=== PATIENT | female | born 1985 ===

== ENCOUNTER 2017-05-15 15:26 | Emergency (ER) | payer OTHER ==
[2017-05-15 16:39] VITALS: BP 142/82; PULSE 86; RESP 16; TEMP 98.3; O2SAT 100
--- NOTE | 2017-05-15 17:26 | ED PDOC ---
HPI: Back Time Seen by Provider: 05/15/17 17:00 Chief Complaint (Nursing): Back Pain Chief Complaint (Provider): Back Pain, Abdominal Pain History Per: Patient History/Exam Limitations: no limitations Onset/Duration Of Symptoms: Days (x 1) Current Symptoms Are (Timing): Still Present Additional Complaint(s): 31 year old female presents to the ER complaining of back pain and lower abdominal pain for 1 day. She denies any incontinence, dysuria, or vaginal bleeding. Additionally, patient states she is approximately 2 weeks . She had a positive urine test in the clinic, and had blood work done but no ultrasound yet. PMD: None provided Past Medical History Reviewed: Historical Data, Nursing Documentation, Vital Signs Vital Signs: Last Vital Signs Temp 98.3 F 05/15/17 16:36 Pulse 86 05/15/17 16:36 Resp 16 05/15/17 16:36 BP 142/82 05/15/17 16:36 Pulse Ox 100 05/15/17 16:36 - Family History Family History: States: Unknown Family Hx - Home Medications Home Medications: Ambulatory Orders Medication Instructions Recorded Ondansetron ODT [Zofran ODT] 4 mg PO Q8 PRN #8 odt 05/15/17 Multivit/Folic Acid/I 1 tab PO DAILY #30 tab 05/15/17 [ Plus] - Allergies Allergies/Adverse Reactions: Allergies Allergy/AdvReac Type Severity Reaction Status Date / Time No Known Allergies Allergy Verified 05/15/17 16:36 Review of Systems ROS Statement: Except As Marked, All Systems Reviewed And Found Negative Gastrointestinal: Positive for: Abdominal Pain. Negative for: Nausea, Vomiting Genitourinary Female: Negative for: Dysuria, Incontinence, Vaginal Bleeding Musculoskeletal: Positive for: Back Pain Physical Exam - Reviewed Nursing Documentation Reviewed: Yes Vital Signs Reviewed: Yes - Physical Exam Appears: Positive for: Non-toxic, No Acute Distress Head Exam: Positive for: ATRAUMATIC, NORMOCEPHALIC Skin: Positive for: Normal Color, Warm, Dry Eye Exam: Positive for: EOMI, Normal appearance, PERRL Neck: Positive for: Normal, Painless ROM, Supple Cardiovascular/Chest: Positive for: Regular Rate, Rhythm. Negative for: Murmur Respiratory: Positive for: Normal Breath Sounds. Negative for: Accessory Muscle Use, Respiratory Distress Gastrointestinal/Abdominal: Positive for: Soft, Tenderness (Mild tenderness diffusely to lower abdomen) Back: Positive for: Normal Inspection Extremity: Positive for: Normal ROM. Negative for: Pedal Edema, Deformity Neurologic/Psych: Positive for: Alert, Oriented (x3). Negative for: Motor/ Sensory Deficits - Laboratory Results Result Diagrams: 05/15/17 19:10 05/15/17 19:10 Urine POC: Positive - ECG O2 Sat by Pulse Oximetry: 100 (RA) Pulse Ox Interpretation: Normal - Progress ED Course And Treament: type and screen O pos as per lab Medical Decision Making Medical Decision Making: Time: 17:10 Initial Impression: 31 y/o female with abdominal pain and back pain Initial Plan: * Blood type and screen * Beta-HCG quantitative * CMP * CBC w/ differential * Urine * Urine dipstick * Urine culture * Urinalysis * Tylenol 975 mg PO * Pending US OB Transvag Prengnacy Time: 18:13 Transvaginal US: FINDINGS: UTERUS: Single Live intrauterine gestational sac. Yolk sac is visualized. pole is not identified on the current examination Gestational sac diameter measures 1.21 cm equivalent to 5 weeks and 2 days gestation age (Ultrasound estimated): Date of delivery (Ultrasound estimated) : 01/12/2018 Brittny-gestational hemorrhage: None. Uterus measures 7.4 x 6.3 x 5.8 cm. No mass CERVIX: Long and closed. No cervical abnormality seen. There are cystic changes in the cervix. RIGHT OVARY: Measures 1.8 x 1.4 x 1.2 cm. No mass. Normal flow. LEFT OVARY: Measures 2.6 x 2.3 x 1.7 cm. No mass. Normal flow. FREE FLUID: None. OTHER FINDINGS: None. IMPRESSION: Single live intrauterine gestational sac with mean gestational age of 5 weeks and 2 days. Yolk sac is identified. pole is not visualized on the current examination likely due to early gestation. Clinical correlation, clinical and imaging follow-up is recommended to confirm viability. Labs reviewed, and are grossly normal. Beta-HCG > 03344.00 Scribe Attestation: Documented by Vanessa Fortune, acting as a scribe for Lee Medina PA-C Provider Scribe Attestation: All medical record entries made by the Scribe were at my direction and personally dictated by me. I have reviewed the chart and agree that the record accurately reflects my personal performance of the history, physical exam, medical decision making, and the department course for this patient. I have also personally directed, reviewed, and agree with the discharge instructions and disposition. Disposition - Clinical Impression Clinical Impression: Threatened miscarriage - Patient ED Disposition Is Patient to be Admitted: No - Disposition [facility] Disposition: Routine/Home Disposition Time: 20:23 Condition: FAIR Prescriptions: Ondansetron ODT [Zofran ODT] 4 mg PO Q8 PRN #8 odt PRN Reason: Nausea/Vomiting Multivit/Folic Acid/I [ Plus] 1 tab PO DAILY #30 tab Instructions: Threatened Miscarriage (ED) Forms: [facility] (Croatian), [facility] ED School/Work Excuse Print Language: CUBAN
[2017-05-15 18:03] LABS: RBC URINE 1 /hpf (0-3); URINE BACTERIA RARE (<OCC); URINE BILIRUBIN NEGATIVE (NEGATIVE); URINE BLOOD NEGATIVE (NEGATIVE); URINE COLOR YELLOW (YELLOW); URINE GLUCOSE (UA) NEG (Normal); URINE KETONE 20 mg/dL (NEGATIVE); URINE LEUKOCYTE ESTERASE TRACE Leu/uL (Negative); URINE PROTEIN NEGATIVE (NEGATIVE); URINE UROBILINOGEN 0.2-1.0 mg/dL (0.2-1.0); WBC URINE 2 /hpf (0-5)
--- NOTE | 2017-05-15 18:15 | US ---
PROCEDURE: OB Pelvic Ultrasound HISTORY: BACK PAIN/ABDOMINAL PAIN COMPARISON: None available. FINDINGS: UTERUS: Single Live intrauterine gestational sac. Yolk sac is visualized. pole is not identified on the current examination Gestational sac diameter measures 1.21 cm equivalent to 5 weeks and 2 days gestation age (Ultrasound estimated): Date of delivery (Ultrasound estimated) : 01/12/2018 Brittny-gestational hemorrhage: None. Uterus measures 7.4 x 6.3 x 5.8 cm. No mass CERVIX: Long and closed. No cervical abnormality seen. There are cystic changes in the cervix. RIGHT OVARY: Measures 1.8 x 1.4 x 1.2 cm. No mass. Normal flow. LEFT OVARY: Measures 2.6 x 2.3 x 1.7 cm. No mass. Normal flow. FREE FLUID: None. OTHER FINDINGS: None. IMPRESSION: Single live intrauterine gestational sac with mean gestational age of 5 weeks and 2 days. Yolk sac is identified. pole is not visualized on the current examination likely due to early gestation. Clinical correlation, clinical and imaging follow-up is recommended to confirm viability.
[2017-05-15 19:18] LABS: BASO # 0.1 K/uL (0.0-0.2); BASO % 0.6 % (0.0-2.0); EOS # 0.2 K/uL (0.0-0.7); HEMATOCRIT 40.4 % (34.0-47.0); LYMPH % 22.7 % (20.0-40.0); MEAN CELL VOLUME 91.2 fl (81.0-99.0); MEAN CORPUSCULAR HEMOGLOBIN 29.9 pg (27.0-31.0); MEAN CORPUSCULAR HGB CONC 32.8 g/dL (33.0-37.0); MEAN PLATELET VOLUME 11.1 fl (7.2-11.7); MONO # 0.7 K/uL (0.0-0.8); MONO % 7.9 % (0.0-10.0); NEUT % 66.8 % (50.0-75.0); NRBC % 0.2 % (0.0-0.0); RED CELL DISTRIBUTION WIDTH 14.3 % (11.5-14.5); WHITE BLOOD COUNT 8.9 K/uL (4.8-10.8)
[2017-05-15 19:39] LABS: ALKALINE PHOSPHATASE 67 U/L (38-126); ALT/SGPT 56 U/L (9-52); AST/SGOT 28 U/L (14-36); BILIRUBIN,TOTAL 0.5 mg/dl (0.2-1.3); BLOOD UREA NITROGEN 6 mg/dl (7-17); CALCIUM 9.4 mg/dL (8.4-10.2); CARBON DIOXIDE 23 mmol/L (22-30); CHLORIDE 105 mmol/L (98-107); GFR AFRICAN-AMERICAN > 60; GLUCOSE,RANDOM 86 mg/dL (65-105); POTASSIUM 3.9 MMOL/L (3.6-5.0); SODIUM 142 mmol/l (132-148); TOTAL PROTEIN 8.7 G/DL (6.3-8.2)
[2017-05-15 19:54] LABS: ALB/GLOB RATIO 1.2 (1.0-2.1)
== END 2017-05-15 21:40 | disposition home or self-care (01) ==
LOC: H.ER 15:26
DX: O20.0 Threatened abortion (principal); Z3A.01 Less than 8 weeks gestation of pregnancy

== ENCOUNTER 2017-12-10 02:15 | Emergency (ER) | payer SELFPAY ==
[2017-12-10 02:23] VITALS: BMI 28.0
--- NOTE | 2017-12-10 03:18 | ED PDOC ---
HPI: General Adult Chief Complaint (Provider): Generalized body itching History Per: Patient History/Exam Limitations: no limitations Onset/Duration Of Symptoms: Days Have you had recent travel within the past 21 days to any of the following countries: [place], [place], [place] or [place]?: No Current Symptoms Are (Timing): Still Present <Perla Monroe - Last Filed: 12/11/17 16:41> <Bronson Rowe - Last Filed: 12/11/17 23:34> Time Seen by Provider: 12/10/17 02:30 Chief Complaint (Nursing): Abnormal Skin Integrity Additional Complaint(s): 32yo f at 37 0/7 weeks with history of a heart murmur (s/p open heart surgery in 2004 in [facility]) presents with generalized body pruritus. She states it began 1 week ago, mostly on her hands and feet but since yesterday she has felt this itchiness all over her body. She reports that this is her first time experiencing it. She states that this itch is also associated with abdominal pain every time the baby moves. She denies vaginal bleeding, fever, chills, rash , nausea, vomiting, diarrhea, chest pain, and dyspnea. LMP: 03/26/17; MAYE: 12/31/17 Patient reports that she does not have a PCP but considers her high school tutor ( Dr. Jones) her PCP. (Perla Monroe) Supervising Attending Note <Perla Monroe - Last Filed: 12/11/17 16:41> - Supervising Attending Note The Documented history was done by the: Physician Cruise Counselor The documented physical exam was done by the: Physician Cruise Counselor - Attestation: I have personally seen and examined this patient.: Yes I have fully participated in the care of the patient.: Yes I have reviewed all pertinent clinical information, including history, physical exam and plan: Yes <Bronson Rowe - Last Filed: 12/11/17 23:34> - Notes: Notes:: 32 yo female with generalized pruritus and RUQ pain; Patient evaluated by supervising provider. VSS Abd mild RUQ tenderness LFTs show mild elevation. Clinical presentation c/w cholestasis of Patient endorsed to dr Christian at 7AM pending U/S GB and OB U/S Case discussed in full with resident physician Dr Luna (Bronson Rowe) Past Medical History - Medical History PMH: No Chronic Diseases Other PMH: history of previous heart murmur - Surgical History Surgical History: (2006 due to high risk of previous open heart surgery. ) Other surgeries: Open heart surgery in 2004 to repair a valve (pt unable to state which valve). - Family History Family History: States: Unknown Family Hx - Living Arrangements Living Arrangements: With Family - Social History Current smoker - smoking cessation education provided: No Alcohol: None Drugs: Denies <Perla Monroe - Last Filed: 12/11/17 16:41> <Bronson Rowe - Last Filed: 12/11/17 23:34> Vital Signs: Last Vital Signs Temp 97.8 F 12/10/17 10:33 Pulse 76 12/10/17 10:33 Resp 16 12/10/17 10:33 BP 128/74 12/10/17 10:33 Pulse Ox 99 12/11/17 16:41 - Home Medications Home Medications: Ambulatory Orders Medication Instructions Recorded Ondansetron ODT [Zofran ODT] 4 mg PO Q8 PRN #8 odt 05/15/17 Multivit/Folic Acid/I 1 tab PO DAILY #30 tab 05/15/17 [ Plus] - Allergies Allergies/Adverse Reactions: Allergies Allergy/AdvReac Type Severity Reaction Status Date / Time No Known Allergies Allergy Verified 12/10/17 02:31 Review of Systems Constitutional: Negative for: Fever, Chills, Sweats Eyes: Negative for: Vision Change ENT: Negative for: Nose Discharge, Nose Congestion, Throat Pain Cardiovascular: Negative for: Chest Pain, Palpitations Respiratory: Negative for: Cough, Shortness of Breath, SOB with Exertion, Wheezing Gastrointestinal: Positive for: Abdominal Pain. Negative for: Nausea, Vomiting , Diarrhea, Melena Genitourinary Female: Negative for: Dysuria, Frequency, Vaginal Bleeding, Pelvic Pain Musculoskeletal: Negative for: Neck Pain, Back Pain Skin: Negative for: Rash, Lesions, Jaundice Neurological: Negative for: Weakness, Numbness, Altered Mental Status <Perla Monroe - Last Filed: 12/11/17 16:41> Physical Exam - Reviewed Vital Signs Reviewed: Yes - Physical Exam Appears: Positive for: Well, Non-toxic, No Acute Distress Head Exam: Positive for: NORMAL INSPECTION Skin: Positive for: Normal Color (excoritations present on right forearm and left upper arm. ), Warm, Dry. Negative for: Rash, Jaundice Eye Exam: Positive for: Normal appearance, PERRL. Negative for: Scleral icterus Cardiovascular/Chest: Positive for: Regular Rate, Rhythm. Negative for: Chest Non Tender, Gallop, Murmur, Friction Rub Respiratory: Positive for: Normal Breath Sounds. Negative for: Crackles, Rales , Rhonchi, Stridor, Wheezing, Respiratory Distress Gastrointestinal/Abdominal: Positive for: Bowel Sounds (normoactive bowel sounds ), Soft, Tenderness (RUQ tenderness. ), Distended (due to ). Negative for: Rebound Back: Negative for: L CVA Tenderness, R CVA Tenderness Neurologic/Psych: Positive for: Alert, Oriented <Perla Monroe - Last Filed: 12/11/17 16:41> - Laboratory Results Result Diagrams: 12/10/17 03:43 12/10/17 03:43 - ECG O2 Sat by Pulse Oximetry: 99 <Perla Monroe - Last Filed: 12/11/17 16:41> - Laboratory Results Result Diagrams: 12/10/17 03:43 12/10/17 03:43 <Bronson Rowe - Last Filed: 12/11/17 23:34> - Progress ED Course And Treament: 0235 Patient's pruritis could be caused by a liver pathology: Intrahepatic cholecystasis of vs. Cholelithiasis vs. Chloecystitis Labs: -CMP -CBC -Lipase -ammonia level -PT/PTT 0440 Patient feels well. Still reports generalized pruritus. Labs reviewed, possible cholestasis. Imaging: - RUQ U/S - OB U/S Signing out to Dr. Santamaria at 0700. (Perla Monroe) Disposition - Disposition Disposition Time: 07:00 <Perla Monroe - Last Filed: 12/11/17 16:41> - Disposition Disposition: Transfer of Care <Bronson Rowe - Last Filed: 12/11/17 23:34> - Clinical Impression Clinical Impression: Cholestasis during - Disposition Condition: FAIR Instructions: Cholestasis of Forms: [facility] (Belarusian) Print Language: SINHALA - PA / INDUSTRIAL ROOFER HELPER / Resident Statement MD/DO has examined the patient and agrees with the treatment plan. <Bronson Rowe - Last Filed: 12/11/17 23:34>
[2017-12-10 03:58] LABS: BASO % 0.4 % (0.0-2.0); EOS # 0.1 K/uL (0.0-0.7); EOS % 1.5 % (0.0-4.0); HEMOGLOBIN 11.7 g/dL (12.0-16.0); LYMPH # 2.1 K/uL (1.0-4.3); LYMPH % 29.7 % (20.0-40.0); MEAN CELL VOLUME 88.5 fl (81.0-99.0); MEAN CORPUSCULAR HEMOGLOBIN 29.6 pg (27.0-31.0); MEAN CORPUSCULAR HGB CONC 33.4 g/dL (33.0-37.0); MEAN PLATELET VOLUME 13.2 fl (7.2-11.7); MONO # 0.6 K/uL (0.0-0.8); MONO % 8.5 % (0.0-10.0); NEUT # 4.2 K/uL (1.8-7.0); NEUT % 59.9 % (50.0-75.0); NRBC % 0.1 % (0.0-0.0); RBC 3.95 Mil/uL (3.80-5.20); RED CELL DISTRIBUTION WIDTH 13.4 % (11.5-14.5); WHITE BLOOD COUNT 7.1 K/uL (4.8-10.8)
[2017-12-10 04:13] LABS: ALB/GLOB RATIO 0.9 (1.0-2.1); ALBUMIN 3.7 g/dL (3.5-5.0); ALT/SGPT 70 U/L (9-52); AST/SGOT 61 U/L (14-36); BLOOD UREA NITROGEN 4 mg/dl (7-17); CALCIUM 9.2 mg/dL (8.4-10.2); GFR AFRICAN-AMERICAN > 60; GFR NON-AFRICAN AMERICAN > 60; LIPASE 74 U/L (23-300)
[2017-12-10 04:15] LABS: SQUAMOUS EPITHIAL 3 /hpf (0-5); URINE BACTERIA RARE (<OCC); URINE BILIRUBIN NEGATIVE (NEGATIVE); URINE BLOOD NEGATIVE (NEGATIVE); URINE CLARITY SLIGHTY-CLOUDY (Clear); URINE COLOR YELLOW (YELLOW); URINE GLUCOSE (UA) NEG (Normal); URINE LEUKOCYTE ESTERASE TRACE Leu/uL (Negative); URINE PROTEIN NEGATIVE (NEGATIVE); URINE UROBILINOGEN 0.2-1.0 mg/dL (0.2-1.0)
[2017-12-10] MEDS ORDERED: Lactated Ringer's 1,000 ML IV STA (04:22)
[2017-12-10 04:25] LABS: INR 0.9 (0.9-1.2); PARTIAL THROMBOPLASTIN TIME 26.7 Seconds (25.6-37.1)
--- NOTE | 2017-12-10 07:15 | ED PDOC ---
- Laboratory Results Result Diagrams: 12/10/17 03:43 12/10/17 03:43 - ECG O2 Sat by Pulse Oximetry: 99 Medical Decision Making Medical Decision Making: Time 07:00 --Patient care endorsed to Dr. Christian from Dr. Rowe pending US and reevaluation. Disposition - Clinical Impression Clinical Impression: Cholestasis during - POA Present On Arrival: None - Disposition Disposition: Hospitalized as Observation Patient Disposition Time: 10:13 Condition: FAIR Instructions: Cholestasis of Forms: [facility] (Puerto Rican) Print Language: SLOVENIAN
--- NOTE | 2017-12-10 10:03 | US ---
Date of service: 12/10/2017 HISTORY: RUQ pain COMPARISON: None. TECHNIQUE: Grayscale imaging was performed. FINDINGS: LIVER: Measures 14.1 cm. Normal echogenicity of the liver parenchyma. No mass. No intrahepatic bile duct dilatation. GALLBLADDER: Unremarkable. No gallstones. COMMON BILE DUCT: Measures 3.7 mm. No stones. No dilatation. PANCREAS: Not well-visualized. RIGHT KIDNEY: Measures 11.3cm. Normal echogenicity. No calculus, mass, or hydronephrosis. There is mild fullness in the renal collecting system. LEFT KIDNEY: Measures 10.2cm. Normal echogenicity. No calculus, mass, or hydronephrosis. SPLEEN: Normal in size and contour. No mass. AORTA: No aneurysmal dilatation. IVC: Unremarkable. OTHER FINDINGS: None. IMPRESSION: No cholelithiasis or biliary dilatation. Mild fullness in the right renal collecting system.
--- NOTE | 2017-12-10 10:26 | US ---
Date of service: 12/10/2017 PROCEDURE: OB Pelvic Ultrasound HISTORY: Abdominal pain and preg LMP: 03/26/2017 COMPARISON: None available. FINDINGS: UTERUS: Gestational sac: Single live intrauterine in cephalic presentation. Heart rate: 131 bpm. BPD: 8.90 cm corresponding to 36 weeks and 0 days of gestational age. HC: 31.75 cm corresponding to 35 weeks and 5 days of gestational age. AC: 31.48 cm corresponding to 35 weeks and 3 days of gestational age. FL: 6.93 cm corresponding to 35 weeks and 4 days of gestational age. age (Ultrasound estimated): 35 weeks and 5 days Brittny-gestational hemorrhage: None. Date of delivery (Ultrasound estimated) : 01/09/2018 Placenta is fundal and posterior. CERVIX: Measures 4.0 cm. Long and closed. No cervical abnormality seen. RIGHT OVARY: Not visualized. LEFT OVARY: Not visualized. FREE FLUID: None. OTHER FINDINGS: None. IMPRESSION: Single live intrauterine fetus in cephalic presentation with mean gestational age of 35 weeks and 5 days. The estimated date of delivery by ultrasound is 01/09/2018. The ultrasound dates correspond with the clinical dates. Please note this is a limited OB examination performed on an emergent basis. A preliminary report was provided by [employer] [facility].
[2017-12-10 10:34] VITALS: BP 128/74; PULSE 76; RESP 16; TEMP 97.8
[2017-12-10] MEDS ORDERED: Betamethasone Soluspan 30 mg/5mL Inj Susp IM ONE (11:39)
[2017-12-10] MEDS ORDERED: Lactated Ringer's 1,000 ML IV SCH (11:45)
--- NOTE | 2017-12-10 14:39 | OBHP ---
Datetime: 12/10/2017 11:29 IP Adm Impression: , intrauterine IP Admit Plan: Observation/Evaluation; Discharge home Admit Comment, IP Provider: LMP: 03/26/2017 32 y/o F at 35.1 wks MAYE 01/13 based on ultrasound presented to ED because of pruritis of B/L palms _ feet x 1 week, but generalized 2 days ago to the entire body, which prevented her from sleepi ng. Patient denied any nausea, loss of appetite, RUQ pain or similar symptoms during her last pregnan cy. Patient denied any vaginal bleeding, loss of fluid _ movement appreciated within past 5 min utes. OBNhx: , 2006, M, no complications pre-eclampsia PMH: none Famhx: mom-diabetes Sochx: no Tobacco, alcohol or drugs Meds: vitamins, aspirin, _ tylenol Allergies: NKDA ROS: neg for dizziness, cp, sob Vitals: 126/72 Pulse-72bpm Spo2-100% FHR Baseline- 140 PE: Gen: well appearing female in no acute distress HEENT: no scleral icterus noted Cardio: s1s2 auscultated Resp: clear b/l Abd: BS + Ext: nontender PMH: A/P:32 y/o F at 35.1 wks MAYE 01/13 with generalized pruritis. AST-61, ALT-70, Alk Phos-302 (el evated); Platelets (164) were within normal limits. 1. FHR monitoring, and 1 L bolus of LR given. 2. Celestone 12mg given once. 3. Bile acids ordered. BPP canceled and will be done tomorrow when patient comes in for second dos e of streoid because ultrasound room is unable to perform in timely manner. 4. at 37 weeks. 5. Scripts given for 24 hour urine, and Celestone 12mg for tomorrow 12/11/2017. Case discussed with Dr. Albert Douglas PGy-1 OB Hospitalist Addendum: Pt seen by me. Agree w/ above. 32 yo at 35+1 wk w/ itching that started on hands and feet x 1 week and has now spread to all over body x 2 days. LFTs mildly elevat ed. Pt appears comfortable lying in bed. NST reactive. Case discussed w/ Dr. Navarro. Rec stero ids, c/s at 37 weeks, and a 24 hr urine collection. Will send bile acids . Will send her home w/ rx for actigall. Pt to return to [facility] tomorrow for second dose of celestone. Advised that pt be sched uled for office visit this week. Pt has a f/u appoint for u/s on ., 12/13/2017. Pt discharged home w/ precautions. (ES) Abdomen - PN: Normal Lungs - PN: Normal Heart - PN: Normal General - PN: Normal FHR - Baseline A Provider: 140's Contraction Comments Provider: irregular EGA AdmitDate IP: 35.1 Vital Signs Provider: Reviewed IP Chief Complaint: Maternal discomfort NICHD Variability Prov Fetus A: Moderate 6-25bpm NICHD Accel Fetus A IP Provider: [id number] FHR Category Provider Fetus A: Category I NICHD Decel Fetus A IP Provider: None
[2017-12-11 16:18] VITALS: O2SAT 99
== END 2017-12-10 14:20 | disposition home or self-care (01) ==
LOC: H.ER 02:15 → H.L&D 11:21 → H.ER 14:20
DX: L29.9 Pruritus, unspecified (principal); O26.613 Liver and biliary tract disorders in pregnancy, third trimester; O26.893 Other specified pregnancy related conditions, third trimester; Z3A.37 37 weeks gestation of pregnancy
CPT/HCPCS: 76700; 76815; 80053; 81003; 82140; 83690; 83789; 84702; 85025; 85610; 85730; 96360; 96361; 96372; 99284; J0702; J7120

== ENCOUNTER 2017-12-11 11:20 | Emergency (ER) | payer SELFPAY ==
[2017-12-10 02:23] VITALS: BMI 28.0
[2017-12-11] MEDS ORDERED: Betamethasone Soluspan 30 mg/5mL Inj Susp IM ONE (12:25)
--- NOTE | 2017-12-11 13:46 | US ---
Date of service: 12/11/2017 PROCEDURE: Limited biophysical profile assessment HISTORY: cholestasis of COMPARISON: 12/10/2017 TECHNIQUE: Limited ultrasound examination was performed for the purpose of assessment of biophysical profile. Nonstress testing was not performed. FINDINGS: A single live intrauterine gestation is identified in cephalic presentation. The heart rate is 139 beats per minute. A normal quantity of amniotic fluid is present. A posterior fundal placenta is identified. Biophysical profile score is 8 out of 8. IMPRESSION: Biophysical profile score 8 out of 8.
--- NOTE | 2017-12-11 14:18 | OBHP ---
Datetime: 12/11/2017 12:31 IP Adm Impression: , intrauterine IP Admit Plan: Observation/Evaluation Admit Comment, IP Provider: LMP: 03/26/2017 32 y/o F at 35.2 wks MAYE 01/13 based on ultrasound presented to ED for 2nd dose of celestone 1 2mg, BPP, and return of 24hour protein collections. Patient was seen yesterday at our ED (12/10/2017) because of pruritis of B/L palms _ feet x 1 week, but generalized 2 days ago to the entire body, whic h she reports has persisted. Patient denied any vaginal bleeding, loss of fluid _ movement appr eciated within past 2 minutes. OBNhx: , 2006, M, no complications pre-eclampsia PMH: none Famhx: mom-diabetes Sochx: no Tobacco, alcohol or drugs Meds: vitamins, aspirin, _ tylenol Allergies: NKDA ROS: neg for dizziness, cp, sob Vitals: 121/72 Pulse-74bpm Spo2-100% FHR Baseline- 135 PE: General: well appearing female Cardio: s1s2 auscultated, no murmurs Resp: clear to auscultated b/l Abd:BS+ Ext: calves nontender A/P:32 y/o F at 35.2 wks MAYE 01/13 based on ultrasound presented to ED for 2nd dose of celesto ne 12mg, BPP, and return of 24hour protein collections. 1. FHR monitoring performed, baseline 135bpm, moderate variability noted. 2. Will give celestone 12mg dose, send for BPP, collect 24 hr urine, and discharge home. Reevaluated BPP- limited study; 01/02- cephalic presentation, posterior placenta Assessment: IUP at 35.2wks Suspected Cholestasis of Awaiting Bile acid results S/P Celestone #2 NST- Reactive. Plan: D/C Home F/U with OB clinic Labor Instructions given to patient Case discussed with Dr. Joey Douglas PGY-1 Attending Note: Pt was seen and examined with Resident and I agree with the above. Extremities - PN: Normal Abdomen - PN: Normal Back - PN: Normal Lungs - PN: Normal Heart - PN: Normal General - PN: Normal FHR - Baseline A Provider: 135 IP Hx Assessment: The History has been Reviewed and is Current EGA AdmitDate IP: 35.2 Vital Signs Provider: Reviewed IP Chief Complaint: Other NICHD Variability Prov Fetus A: Moderate 6-25bpm NICHD Decel Fetus A IP Provider: None
[2017-12-11 18:40] VITALS: BP 107/64; PULSE 59
[2017-12-12 10:47] LABS: CREATININE, 24 HOUR URINE 0.99 g/24 h (0.63-2.50)
[2017-12-14 05:04] LABS: ALBUMIN 18.5 Relative %
== END 2017-12-11 14:39 | disposition home or self-care (01) ==
LOC: H.EROB2 11:20 → H.L&D 11:57 → H.EROB2 14:39
DX: O26.613 Liver and biliary tract disorders in pregnancy, third trimester (principal); Z23 Encounter for immunization; Z3A.35 35 weeks gestation of pregnancy
CPT/HCPCS: 76818; 82570; 84156; 84166; 96372; 99282; J0702

== ENCOUNTER 2017-12-23 16:25 | Emergency (ER) | payer SELFPAY ==
[2017-12-23 17:21] VITALS: BMI 26.4
--- NOTE | 2017-12-23 19:44 | OBDCSUM ---
Datetime: 12/23/2017 19:35 Discharged to, Provider: Home Follow up at, Provider: Areli Disch Instr Activity: Normal activity Disch Instr Diet: Regular Discharge Instructions, Provider: Routine instructions given Discharge Time: 12/23/2017 19:35 Follow up in weeks, Provider: return to l/d on sunday12/25/17 for repeat c/s as scheduled Disch Referrals: None Contraception discussed, Prov: Yes Disch Activity Restrictions: Nothing in vagina - Cuney, tampons, douche Discharge Diagnosis Prov Other: decreased movement
--- NOTE | 2017-12-23 19:45 | OBHP ---
Datetime: 12/23/2017 17:26 IP Adm Impression: Term, intrauterine IP Admit Plan: Observation/Evaluation Admit Comment, IP Provider: 32 y/o F at 37 weeks GA, MAYE 01/13/18 by 1st trim USm complains of decreased movement. Pt reports feeling baby moving _2pm today and it was very weak. Pt reports having an US 4 days ago which showed movement. No LOF, uterine CTX's, VB. -Pt was diagnosed with cholestatic disease of 3 weeks ago, scheduled repeat on Sunday12/25/17. -Pt denies hedache, visual disturbances, chest pain, SOB, abdominal pain, N/V, pruritus or periphe ral edema. -All systems reviewed and negative except as above NKDA Meds: PNV, Aspirin, Actigall and Tylenol OBHx: G 2 P1001. 1x . Post- Pre-Eclampsia 1-2 weeks after , was on meds f or a few weeks. PN Care: with Dr Mtz PN Labs: GBS neg, RPR neg, HIV neg, TB Quant neg. PMHx: Aortic valve defect PSHx: ?Open heart-surgical reapir of aortic valve. FHx: NC SHx: No tobacco, alcohol or rec drugs. A/P 32 y/o F with a IUP at 37 weeks GA, with subjective decreased movement. Current Hx of choles tatic disease of . -Bedside BPP - heart monitor Case discussed with Dr Dwyer, OB hospitalist commission agent livestock GTolentino PGY-[address] Dwyer: I have evaluated the patient independently and I agree with the above. NST reactive, AWW=458 mod jose antonio, +accels, no decels. TOCO = leroy q 6 mins. BPP = 8/8. Precautions gi lee ann to patient for reasons to return before 12/25. Pt feeling adequate movement by end of ev aluation Pelvic Type - PN: Adequate Extremities - PN: Normal Abdomen - PN: Normal Back - PN: Normal Lungs - PN: Normal Heart - PN: Normal Thyroid - PN: Normal Neurologic - PN: Normal HEENT - PN: Normal General - PN: Normal IP Hx Assessment: The History has been Reviewed and is Current EGA AdmitDate IP: 37.0 Vital Signs Provider: Reviewed IP Chief Complaint: Decreased movement
[2017-12-24 01:55] VITALS: BP 121/77; PULSE 67; RESP 18; TEMP 98.1; O2SAT 99
--- NOTE | 2017-12-24 11:01 | US ---
Date of service: 12/23/2017 PROCEDURE: Biophysical profile/limited ultrasound. HISTORY: decreased movements COMPARISON: 12/11/2017 biophysical profile.. TECHNIQUE: Standard protocol for this study/examination. FINDINGS: FINDINGS: Biophysical profile score 8/8 Based on the followin. breathing movements: 2/2 2. Gross body movement: 2/2 3. tone: 2/2 4. Qualitative amniotic fluid index: 2/2 Calculated cardiac rate 143 beats per minute. Quantitative amniotic fluid assessment: 20.30 cm. IMPRESSION: Biophysical profile score 8/8. Concordant results (preliminary interpretation) provided by [facility]. Procedure Completed: 19:24. Preliminary ([facility]) Report: Dictated and Authenticated: 20:25. Final Interpretation: 11:00. December 24, 2017.
== END 2017-12-23 19:40 | disposition home or self-care (01) ==
LOC: H.EROB2 16:25
DX: O36.8131 Decreased fetal movements, third trimester, fetus 1 (principal); Z3A.37 37 weeks gestation of pregnancy

== ENCOUNTER 2017-12-25 07:17 | Inpatient (IN) | payer MEDICAID, SELFPAY ==
[2017-12-25 07:50] VITALS: BMI 29.1
[2017-12-25] MEDS ORDERED: OXYTOCIN/0.9 % NS 20 UNIT/1,000 ML BAG IV SCH (08:00)
[2017-12-25] MEDS ORDERED: ceFAZolin IV 2 gm in Dextrose 2 GM/50 ML BAG IVPB ONE (08:27)
[2017-12-25] MEDS: Lactated Ringer's 1,000 ML IV ONE ×2 (08:30→09:30)
[2017-12-25 08:39] LABS: BASO % 0.3 % (0.0-2.0); EOS # 0.1 K/uL (0.0-0.7); EOS % 1.1 % (0.0-4.0); HEMOGLOBIN 11.2 g/dL (12.0-16.0); LYMPH # 1.5 K/uL (1.0-4.3); LYMPH % 28.2 % (20.0-40.0); MEAN CELL VOLUME 86.8 fl (81.0-99.0); MEAN CORPUSCULAR HEMOGLOBIN 28.7 pg (27.0-31.0); MEAN PLATELET VOLUME 12.8 fl (7.2-11.7); MONO # 0.4 K/uL (0.0-0.8); NEUT # 3.2 K/uL (1.8-7.0); NEUT % 62.4 % (50.0-75.0); NRBC % 0.1 % (0.0-0.0); RBC 3.9 Mil/uL (3.80-5.20); RED CELL DISTRIBUTION WIDTH 13.8 % (11.5-14.5); WHITE BLOOD COUNT 5.1 K/uL (4.8-10.8)
[2017-12-25] MEDS ORDERED: Sodium Chloride 0.9% 10 ML IV ONE (08:51)
[2017-12-25] MEDS ORDERED: Morphine 1 mg/ml preservative-free Inj(Duramorph) ONE (08:51)
[2017-12-25] MEDS ORDERED: Phenylephrine 10 mg/ml Inj ONE (08:51)
[2017-12-25] MEDS ORDERED: ePHEDrine 50 mg/ml Inj ONE (08:51)
[2017-12-25] MEDS ORDERED: Oxytocin 30 UNITS in Sodium Chloride 0.9% 500 ML IV ONE (09:30)
[2017-12-25] MEDS ORDERED: Lactated Ringer's 1,000 ML IV SCH (09:45)
--- NOTE | 2017-12-25 11:22 | OBADHP ---
Datetime: 12/25/2017 07:58 Admit Comment, IP Provider: LMP: 03/26/2017 PNP: Dr. Jonse 32 y/o F at 37.2 wks is presenting for repeat . Pt reports minimal lower abdominal pain, but denies vaginal bleeding, loss of fluid. She reports some movement. OBGYNhx: cholestasis of currently on ursodiol 300mg Q8hrs , 06/2006, M PMH: cholestasis Allergies: NKA Meds: Aspirin, ursodiol 300mg Q8, vitamins Surghx: open heart surgery Famhx: neg Sochx: neg for tobacco, EtOH or drugs ROS: neg for cp, sob, blurred vision Vitals: BP: 116/78 SPO2-99% on room air Pulse: 74 bpm PE: Gen: well appearing female in no acute distress Cardio: s1s2 auscultated, no murmurs Resp: clear b/l Abd: BS+ Ext: calves nontender A/P: 32 y/o F at 37.2 wks 1. Admit to unit. Initiate protocol. Case discussed with Attending Jo Douglas PGY-1 Patient seen and examined by me this am. Agree with above H+P. Extremities - PN: Normal Abdomen - PN: Normal Heart - PN: Normal General - PN: Normal Gestation - Est Wks by US: 37.2 IP Hx Assessment: The History has been Reviewed and is Current Vital Signs Provider: Reviewed; Within Normal Limits IP Chief Complaint: Scheduled Section EGA AdmitDate IP: 37.2 IP Adm Impression: Term, intrauterine IP Admit Plan: Admit to unit; Initiate Section protocol Datetime: 12/23/2017 17:26 Pelvic Type - PN: Adequate Back - PN: Normal Lungs - PN: Normal Thyroid - PN: Normal Neurologic - PN: Normal HEENT - PN: Normal Datetime: 12/11/2017 12:31 FHR - Baseline A Provider: 135 NICHD Variability Prov Fetus A: Moderate 6-25bpm NICHD Decel Fetus A IP Provider: None Datetime: 12/10/2017 11:29 Contraction Comments Provider: irregular NICHD Accel Fetus A IP Provider: [id number] FHR Category Provider Fetus A: Category I
[2017-12-25] MEDS ORDERED: Oxycodone/Acetaminophen 5/325 mg Tab PO PRN ×2 (15:10→16:39)
[2017-12-25] MEDS ORDERED: DiphenhydrAMINE 50 mg/ml Inj IVP PRN ×2 (15:10→16:39)
[2017-12-25] MEDS: Lactated Ringer's 1,000 ML IV SCH (20:38)
[2017-12-26] MEDS: Lactated Ringer's 1,000 ML IV SCH (04:49)
[2017-12-26] MEDS: Oxycodone/Acetaminophen 5/325 mg Tab PO PRN ×4 (04:51→21:07)
[2017-12-26 06:47] LABS: BASO % 0.3 % (0.0-2.0); EOS # 0.1 K/uL (0.0-0.7); EOS % 0.7 % (0.0-4.0); HEMOGLOBIN 9.4 g/dL (12.0-16.0); LYMPH # 1.7 K/uL (1.0-4.3); LYMPH % 19.8 % (20.0-40.0); MEAN CELL VOLUME 88.3 fl (81.0-99.0); MEAN CORPUSCULAR HEMOGLOBIN 28.9 pg (27.0-31.0); MEAN CORPUSCULAR HGB CONC 32.7 g/dL (33.0-37.0); MEAN PLATELET VOLUME 12.8 fl (7.2-11.7); MONO # 0.8 K/uL (0.0-0.8); MONO % 8.9 % (0.0-10.0); NEUT % 70.3 % (50.0-75.0); RBC 3.26 Mil/uL (3.80-5.20); RED CELL DISTRIBUTION WIDTH 13.8 % (11.5-14.5); WHITE BLOOD COUNT 8.6 K/uL (4.8-10.8)
[2017-12-26] MEDS: Multivitamin With Minerals Tab PO SCH (08:53)
[2017-12-26] MEDS ORDERED: Multivitamin With Minerals Tab PO SCH (09:00)
--- NOTE | 2017-12-26 10:17 | OBPPN ---
Datetime: 12/26/2017 06:45 PP Pain Prov: Within normal limits PP Nausea Prov: Denies PP Flatus Prov: No PP BM Prov: No PP Heart Prov: Normal PP Lungs Prov: Normal PP Abdomen/Uterus Prov: Normal PP Lochia Prov: Normal PP Extremities Prov: Normal PP C/S Incision Prov: Normal PP Impression Prov: Normal progression PP Plan Prov: Continue present management PP Progress Note Prov: Cyra: [id number] S: Pt is a 32 yo 38.2 wk s/p C section on 12/25/17 POD 1. Seen and examined at bedside this am . Patient denies any significant overnight events. Reports mild pain controlled with medications. Ling snt ambulated yet. Breast and bottle feeding without difficulty. Tolerating regular diet. Lochia is similar to menses. Voiding with stover currently. Patient hasnot had a bowel movement, and is not pas sing gas per rectum yet. Denies fever/chills, diarrhea, nausea/vomiting, CP/SOB , lightheadedness. O: BP:122/70, HR:67, T 98.4F CBC:, blood type: O+, rubella: Immune PHYSICAL EXAM: GEN: AAOx3, Resting comfortably in bed, NAD HEENT: NCAT, White sclera, pink conjunctiva, oral mucosa moist. LUNGS: CTA B/L, no wheezing, rhonchi, or rales, B/L chest rise CVS: RRR, S1, S2, No murmurs, rubs, gallops ABD: ND, +BS, firm fundus @ umbilical level. Soft, appropriate TTP, Dressing intact clean and dry. EXT: no edema, negative Carol's sign, calves non tender NEURO/Psych: no gross focal deficit, preserved affect and mood. A/P 32 y/o s/p C -section on 12/25/17 @ 12:51 POD1. Pt afebrile, tolerating pain with medication, tolerating regular diet, adequate urine output with stover. Encouraged breast feeding and ambulation Ibuprofen 600mg 1 tab po q 6hr mild pain Percocet 5/325mg 1 tab po q 6h for mod/severe pain PNV 1 tab po daily Puuruon79.2mg PO HS for constipation Post op contraception- B/L tubal ligation done F/U 1 wk for wound check and stable removal 4-6 weeks for post- visit at [facility] Parvin Gonzalez M.D. PGY-1 Patient was seen and case discussed with Dr. Nagy The patient was seen with the resident I agree with the note IP PP Procedures: None; Tubal Ligation Vital Signs Provider PP: Reviewed; Within Normal Limits
--- NOTE | 2017-12-26 10:58 | OBDS ---
LABOR SUMMARY EDC: 01/13/2018 00:00 No. Babies in Womb: 1 Attempted: No Labor Anesthesia: None LABOR INFORMATION Reason for Induction: Not Applicable Oxytocin: N/A Group B Beta Strep: Negative MEMBRANES Membranes Rupture Method: Artificial Rupture of Membranes: 12/25/2017 12:50 Length of Rupture (hrs): 0.02 Amniotic Fluid Color: Light Meconium Amniotic Fluid Amount: Moderate Amniotic Fluid Odor: Normal STAGES OF LABOR Stage 3 hrs: 0 Stage 3 min: 3 CSECTION DELIVERY Primary Indication: Repeat Elective with BTL CSection Urgency: Elective CSection Incidence: Repeat Labor: No Labor Elective: Elective Sterilization Procedure: Stow BABY A INFORMATION Delivery Date/Time: 12/25/2017 12:51 Method of Delivery: Born in Route : No : N/A Forceps: N/A Vacuum Extraction: N/A Shoulder Dystocia : No SHOULDER DYSTOCIA BABY A Infant Delivery Date/Time: 12/25/2017 12:51 PRESENTATION/POSITION BABY A Presentation: Cephalic Cephalic Presentation: Vertex Breech Presentation: N/A PLACENTA INFORMATION BABY A Placenta Delivery Time : 12/25/2017 12:54 Placenta Method of Delivery: Manual Removal Placenta Status: Delivered SCORES BABY A Heart Rate 1 min: >100 bpm Resp Effort 1 min: Good Cry Reflex Irritability 1 min: Cough or Sneeze or Pulls Away Muscle Tone 1 min: Active Motion Color 1 min: Body Tresckow, Extremities Blue Resuscitation Effort 1 min: Tactile Stimulation SCORE 1 MIN: 9 Heart Rate 5 min: >100 bpm Resp Effort 5 min: Good Cry Reflex Irritability 5 min: Cough or Sneeze or Pulls Away Muscle Tone 5 min: Active Motion Color 5 min: Body Tresckow, Extremities Blue Resuscitation Effort 5 min: Tactile Stimulation SCORE 5 MIN: 9 INFANT INFORMATION BABY A Gestational Age at Delivery: 37.2 Gestational Status: Term Outcome : Liveborn Infant Condition : Stable Sex: Female IDENTIFICATION/MEDS BABY A ID Band Number: [id number] ID Band Location: Left Leg; Left Arm Vitamin K Given : Not Given Erythromycin Given: Not Given WEIGHT/LENGTH BABY A Infant Birthweight (gms): 3280 Weight (lb): 7 Weight (oz): 4 CORD INFORMATION BABY A No. Cord Vessels: 3 Nuchal Cord : Around Neck x1, Loose Cord Blood Taken: Yes Infant Suction: Mouth ASSESSMENT BABY A Infant Complications: None Physical Findings at Delivery: Within Normal Limits Physical Findings Other: had urine Infant Respirations: Appears Normal Van Cdl Driver/ALS Called : No Infant Care By: /[place] Transferred To: Remains with Mother
[2017-12-27] MEDS: Oxycodone/Acetaminophen 5/325 mg Tab PO PRN ×3 (04:28→20:04)
--- NOTE | 2017-12-27 06:09 | OP ---
Copied To: Dre Mtz MD Attending MD: Dre Mtz MD PROCEDURE DATE: 12/25/2017 PREOPERATIVE DIAGNOSIS: Term at 37 weeks with cholestasis of and history of congenital heart disease repaired. POSTOPERATIVE DIAGNOSIS: Term at 37 weeks with cholestasis of and history of congenital heart disease repaired. Delivered. PROCEDURE: Repeat low-transverse section and bilateral tubal ligation. SURGEON: Dre Mtz MD BINDER CUTTER: Jose Eagle MD ESTIMATED BLOOD LOSS: 700 mL. INTRAVENOUS FLUID: 1600 mL lactated Ringer's. URINE OUTPUT: 400 mL, clear at the end of procedure. COMPLICATIONS: None. PATHOLOGY: Segment of right and left fallopian tubes and placenta. CLOSURE: Manpreet. FINDINGS: A live female with Apgars of 9 and 9, weight 3280 g, white meconium fluid. Nuchal x1, easily reduced. Grossly normal tubes, ovaries, and uterus. DESCRIPTION OF PROCEDURE: The patient was taken to the operating room and given spinal anesthesia without difficulty. She was then prepped and draped in normal sterile fashion in the dorsal supine position with a leftward tilt. The previous vertical abdominal keloid scar was then removed with the scalpel and the Bovie and handed off of the field. The incision was then carried through to the underlying fascia using the Bovie and the fascia was incised and extended superiorly and inferiorly. The fascia was then dissected off of the underlying rectus muscles meticulously using the Bovie and Harrington scissors. Following this, the peritoneum was then identified, tented up, entered with Metzenbaum scissors, and the incision was then extended laterally, superiorly, and inferiorly. The bladder blade was inserted. The vesicouterine peritoneum was identified, tented up and entered with Metzenbaum scissors. This incision was extended laterally and a bladder flap was created digitally. The bladder blade was reinserted and the lower uterine segment was then incised and entered in a transverse fashion with a scalpel. This incision was then extended cephalocaudally bluntly. Light meconium fluid was noted and the baby was delivered in a vertex presentation atraumatically. The nose and mouth were suctioned on the abdomen. The cord was doubly clamped and cut, and the infant was handed off to the awaiting patient services rep. Cord blood was then taken and cord blood for banking was also retrieved as well as a segment of the cord for cord tissue banking as well. The placenta was extracted spontaneously and intact. The uterus was exteriorized and cleared of all clots and debris. The uterine incision was then closed with 1 Vicryl in a running locking fashion and 2 further [id number] sutures were then placed and good hemostasis was noted. Attention was then turned to the tube at which time a modified Mikaela procedure was then performed for tubal ligation bilaterally using a 2-0 chromic suture. A segment of the right and left fallopian tube were removed, handed off the table for pathology and the Bovie was used to ensure good hemostasis at the cut portion of the tubes. Copious irrigation was performed. The uterus was returned to the abdomen. The gutters were cleared of all clots. Inspection of the uterine incision and the site of tubal ligation again revealed good hemostasis. The fascia, muscle, and peritoneum were then reapproximated using 1 Prolene suture from the inferior and superior aspect of the incision meeting in the midline The subcutaneous fat was reapproximated using a 3-0 plain suture with 8 interrupted stitches and the skin was reapproximated with manpreet. The incision was covered with a sterile dressing. The patient tolerated the procedure well. Sponge, lap, and needle counts were correct x4. Ancef 2 g was given preoperatively. The patient was taken to the recovery room in stable condition. There was no injury to the bladder, bowel, or ureter; and the jar filler for the cord blood banking was also notified. Due to the nature of the case, an customer assistant was requested. Myself and Dr. Eagle were present from the entire procedure from the initial incision to the patient's transfer to the recovery room. He assisted with removal of the previous keloid scar of its vertical incision, entry into the abdominal cavity, delivery of the baby, and closure of all layers of the abdominal wall. He also provided good exposure to ensure good hemostasis and minimize blood loss, and the procedure could not have been performed without his assistance. Dre Mtz MD [facility] # [id number]
[2017-12-27] MEDS: Multivitamin With Minerals Tab PO SCH (09:41)
--- NOTE | 2017-12-27 13:12 | OBPPN ---
Datetime: 12/27/2017 08:54 PP Pain Prov: Within normal limits PP Nausea Prov: Denies PP Flatus Prov: Yes PP BM Prov: No PP Heart Prov: Normal PP Lungs Prov: Normal PP Abdomen/Uterus Prov: Normal PP Lochia Prov: Normal PP Extremities Prov: Normal PP C/S Incision Prov: Normal PP Progress Prov: Normal PP Impression Prov: Normal progression PP Plan Prov: Continue present management PP Progress Note Prov: S: Pt is a 32 y/o 38.2 wk s/p C section on 12/25/17 POD 2. Seen and exami gayle at bedside this am. Patient denies any significant overnight events. Reports pain to the surgica l area controlled with medications. Has ambulated, Breast and bottle feeding without difficulty. Karis erating regular diet. Lochia is less than menses. Voiding normal, stover was removed. Patient has not had a bowel movement, but is passing gas per rectum yet. Denies fever/chills, diarrhea, nausea/vomiti ng, CP/SOB, lightheadedness. O: BP: 120/70 HR 62 temp 98.1 CBC: blood type: O+, rubella: Immune PHYSICAL EXAM: GEN: AAOx3, Resting comfortably in bed, NAD HEENT: NCAT, White sclera, pink conjunctiva, oral mucosa moist. LUNGS: CTA B/L, no wheezing, rhonchi, or rales, B/L chest rise CVS: RRR, S1, S2, there is 3/6 systolic murmur on the apex, no gallops ABD: ND, +BS, firm fundus @ umbilical level. Soft, appropriate TTP, Dressing intact clean and dry. EXT: no edema, negative Carol's sign, calves non tender NEURO/Psych: no gross focal deficit, preserved affect and mood. A/P 32 y/o s/p C -section on 12/25/17 @ 12:51 POD1. Pt afebrile, tolerating pain with medication, tolerating regular diet, voiding without stover Encouraged breast feeding and ambulation Ibuprofen 600mg 1 tab po q 6hr mild pain Percocet 5/325mg 1 tab po q 6h for mod/severe pain PNV 1 tab po daily Rrleotc81.2mg PO HS for constipation Post op contraception- B/L tubal ligation done F/U 1 wk for wound check and stable removal 4-6 weeks for post- visit at the [facility] Kulwant Pritchett M.D PGY1 Pateint seen and discussed with attending Dr Nagy. Attending addendum: I saw and examined the patient at bedside this morning. I reviewed the resident note above and agr ee with findings and managemet. Anticipate DC home tomorrow. has f/u scheduled w/ Dr. Jones in 1 week for wound check and 6wks for pp appt and appt Vital Signs Provider PP: Reviewed; Within Normal Limits
[2017-12-28] MEDS: Multivitamin With Minerals Tab PO SCH (08:53)
[2017-12-28 18:10] VITALS: BP 130/68; PULSE 70; RESP 20; TEMP 98.4; O2SAT 100
== END 2017-12-28 11:55 | disposition home or self-care (01) | DRG 765 ==
LOC: H.L&D 08:55 → H.OB/GYN 16:24
PROVIDERS: ADMIT Obstetrics & Gynecology; ATTEND Obstetrics & Gynecology
PROC: 10D00Z1 Extraction of Products of Conception, Low, Open Approach (ICD-10-PCS; principal; 2017-12-25)
PROC: 0UB70ZZ Excision of Bilateral Fallopian Tubes, Open Approach (ICD-10-PCS; 2017-12-25)
PROC: 4A1HXCZ Monitoring of Products of Conception, Cardiac Rate, External Approach (ICD-10-PCS; 2017-12-25)
DX: O34.211 Maternal care for low transverse scar from previous cesarean delivery (principal); O26.62 Liver and biliary tract disorders in childbirth; Z37.0 Single live birth; N85.8 Other specified noninflammatory disorders of uterus; O69.81X0 Labor and delivery complicated by cord around neck, without compression, not applicable or unspecified; Z3A.37 37 weeks gestation of pregnancy; Z30.2 Encounter for sterilization; O77.0 Labor and delivery complicated by meconium in amniotic fluid

== ENCOUNTER 2018-01-06 20:38 | Emergency (ER) | payer SELFPAY ==
[2018-01-06 20:39] VITALS: BMI 29.1
[2018-01-06 20:55] VITALS: RESP 18
[2018-01-06] MEDS ORDERED: Sodium Chloride 0.9% 1,000 ML IV STA (21:50)
--- NOTE | 2018-01-06 21:56 | ED PDOC ---
HPI: General Adult Time Seen by Provider: 01/06/18 21:39 Chief Complaint (Nursing): Wound Check Chief Complaint (Provider): Wound dc History Per: Patient History/Exam Limitations: no limitations Onset/Duration Of Symptoms: Days (yesterday) Current Symptoms Are (Timing): Still Present Additional Complaint(s): Pt. with pain at her site lower. Also dc from that area. No nausea, vomit, diarrhea, weakness. No dysuria. No fever. Vaginal bleeding trace. Had December 25. Past Medical History Reviewed: Nursing Documentation, Vital Signs Vital Signs: Last Vital Signs Temp 97.8 F 01/06/18 20:53 Pulse 72 01/06/18 20:53 Resp 18 01/06/18 20:53 BP 150/84 01/06/18 20:53 Pulse Ox 100 01/06/18 20:53 - Medical History PMH: No Chronic Diseases Denies: Depression, Diabetes, HTN - Surgical History Surgical History: (2006 due to high risk of previous open heart surgery. ) - Family History Family History: States: Unknown Family Hx - Home Medications Home Medications: Ambulatory Orders Medication Instructions Recorded Multivit/Folic Acid/I 1 tab PO DAILY #30 tab 05/15/17 [ Plus] Aspirin [Adult Low Dose Aspirin EC] 1 tab PO DAILY 12/25/17 Ursodiol [Actigall] 1 cap PO DAILY 12/25/17 - Allergies Allergies/Adverse Reactions: Allergies Allergy/AdvReac Type Severity Reaction Status Date / Time No Known Allergies Allergy Verified 01/06/18 20:53 Review of Systems ROS Statement: Except As Marked, All Systems Reviewed And Found Negative Gastrointestinal: Positive for: Abdominal Pain Physical Exam - Reviewed Nursing Documentation Reviewed: Yes Vital Signs Reviewed: Yes - Physical Exam Appears: Positive for: Non-toxic, No Acute Distress Head Exam: Positive for: ATRAUMATIC, NORMAL INSPECTION, NORMOCEPHALIC Skin: Positive for: Normal Color, Warm, DRY Eye Exam: Positive for: EOMI, Normal appearance, PERRL ENT: Positive for: Normal ENT Inspection Neck: Positive for: Normal, Painless ROM Cardiovascular/Chest: Positive for: Regular Rate, Rhythm Respiratory: Positive for: CNT, Normal Breath Sounds Gastrointestinal/Abdominal: Positive for: Soft, Tenderness (lower central at bottom of vertical incision with trace yellow dc.; no induration or fluctuance.) Back: Positive for: Normal Inspection. Negative for: L CVA Tenderness, R CVA Tenderness Extremity: Positive for: Normal ROM Neurologic/Psych: Positive for: Alert, Oriented - ECG O2 Sat by Pulse Oximetry: 100 Pulse Ox Interpretation: Normal Disposition - Disposition
[2018-01-06 23:49] LABS: BASO % 0.6 % (0.0-2.0); EOS # 0.6 K/uL (0.0-0.7); EOS % 8.9 % (0.0-4.0); HEMOGLOBIN 11.2 g/dL (12.0-16.0); LYMPH # 2.1 K/uL (1.0-4.3); LYMPH % 30.9 % (20.0-40.0); MEAN CELL VOLUME 87.6 fl (81.0-99.0); MEAN CORPUSCULAR HGB CONC 33.1 g/dL (33.0-37.0); MEAN PLATELET VOLUME 9.4 fl (7.2-11.7); MONO # 0.5 K/uL (0.0-0.8); MONO % 8.1 % (0.0-10.0); NEUT # 3.5 K/uL (1.8-7.0); NEUT % 51.5 % (50.0-75.0); NRBC % 0.1 % (0.0-0.0); RBC 3.86 Mil/uL (3.80-5.20); RED CELL DISTRIBUTION WIDTH 14.6 % (11.5-14.5); WHITE BLOOD COUNT 6.7 K/uL (4.8-10.8)
--- NOTE | 2018-01-07 00:01 | ED PDOC ---
- Laboratory Results Result Diagrams: 01/06/18 23:17 01/06/18 23:17 - ECG O2 Sat by Pulse Oximetry: 100 (RA) Pulse Ox Interpretation: Normal Medical Decision Making Medical Decision Makin Patient signed out to me by Dr. Maxwell pending CT studies, reassessment. 0130 CT Abdomen/Pelvis FINDINGS: Lung bases: There is minimal bibasilar atelectasis. ABDOMEN: Liver: Unremarkable. No mass. Gallbladder and bile ducts: Unremarkable. No calcified stones. No ductal dilation. Pancreas: Unremarkable. No mass. No ductal dilation. Spleen: Unremarkable. No splenomegaly. Adrenals: Unremarkable. No mass. Kidneys and ureters: Unremarkable. No solid mass. No hydronephrosis. Stomach and bowel: Mildly prominent fluid filled loops of small bowel probably an ileus. No transition point to suggest small bowel obstruction. There is no wall thickening or pericolonic stranding to suggest colitis. No obstruction. No mucosal thickening. PELVIS: Appendix: No findings to suggest acute appendicitis. Bladder: Unremarkable. No mass. Reproductive: Enlarged uterus. There postsurgical changes in the pelvic wall consistent with recent . There is mild stranding of the right pelvic fat. No fluid collection or abscess. ABDOMEN and PELVIS: Intraperitoneal space: Unremarkable. No free air. No significant fluid collection. Bones/joints: No acute fracture. No dislocation. Soft tissues: See above. Vasculature: Unremarkable. No abdominal aortic aneurysm. Lymph nodes: Unremarkable. No enlarged lymph nodes. IMPRESSION: Postsurgical changes consistent with . No abscess. Mild ileus PT AWARE OF CT RESULTS. FEELS IMPROVED. WILL FOLLOW UP WITH DR DEWAYNE KASPER INSTRUCTED RETURN WITH ANY WORSENING OR CONCERNING SYMPTOMS Scribe Attestation: Documented by Mayda Cheatham, acting as a scribe for Derrick Sanabria MD. Provider Scribe Attestation: All medical record entries made by the Scribe were at my direction and personally dictated by me. I have reviewed the chart and agree that the record accurately reflects my personal performance of the history, physical exam, medical decision making, and the department course for this patient. I have also personally directed, reviewed, and agree with the discharge instructions and disposition. Disposition - Clinical Impression Clinical Impression: Encounter for wound re-check - POA Present On Arrival: None - Disposition Disposition: Routine/Home Disposition Time: 02:00 Condition: IMPROVED Additional Instructions: follow up with Dr Dewayne Juarez as instructed in 2 days return to the ED with any worsening or concerning symptoms such as increased pain, fever, vomiting Instructions: Wound Care (DC) Forms: [facility] (Romansh)
[2018-01-07 00:02] LABS: ALB/GLOB RATIO 1.1 (1.0-2.1); ALT/SGPT 52 U/L (9-52); AST/SGOT 37 U/L (14-36); BLOOD UREA NITROGEN 10 mg/dl (7-17); CALCIUM 9.2 mg/dL (8.4-10.2); GFR AFRICAN-AMERICAN > 60; GFR NON-AFRICAN AMERICAN > 60
[2018-01-07] MEDS ORDERED: Sodium Chloride 0.9% 50 ML IV ONE (00:20)
[2018-01-07] MEDS ORDERED: Iohexol 300 100 ML IJ ONE (00:20)
[2018-01-07 06:26] VITALS: BP 142/78; PULSE 52; TEMP 98
--- NOTE | 2018-01-07 09:39 | CT ---
Date of service: 01/07/2018 PROCEDURE: CT Abdomen and Pelvis with contrast HISTORY: Recent . Patient presenting with pain at the surgical site. COMPARISON: None. TECHNIQUE: Contrast dose: 90 cc Omnipaque 300. Radiation dose: Total exam DLP = 210.89 mGy-cm. This CT exam was performed using one or more of the following dose reduction techniques: Automated exposure control, adjustment of the mA and/or kV according to patient size, and/or use of iterative reconstruction technique. FINDINGS: LOWER THORAX: Unremarkable. LIVER: Hepatic steatosis. No focal masses. No intrahepatic bile duct dilatation or perihepatic ascites. GALLBLADDER AND BILE DUCTS: Unremarkable. PANCREAS: Unremarkable. No gross lesion or ductal dilatation. SPLEEN: Unremarkable. ADRENALS: Unremarkable. No mass. KIDNEYS AND URETERS: Unremarkable. No hydronephrosis. No solid mass. VASCULATURE: Unremarkable. No aortic aneurysm. BOWEL: Mild sigmoid diverticulitis. This involves a short segment of the sigmoid. No adjacent free-air or free-fluid documented. APPENDIX: Normal appendix. PERITONEUM: Unremarkable. No free fluid. No free air. LYMPH NODES: Unremarkable. No enlarged lymph nodes. BLADDER: Unremarkable. REPRODUCTIVE: Enlarged uterus. Anterior abdominal wall postoperative changes. Fluid identified in the endometrial canal. BONES: No acute fracture. OTHER FINDINGS: None. IMPRESSION: Mild sigmoid diverticulitis. Postoperative changes described above. Concordant results (preliminary interpretation) provided by Graspr. Procedure Completed: 00:38. Preliminary ([facility]) Report: Dictated and Authenticated: 01:13. Final Interpretation: 09:36. January 07, 2018.
[2018-01-07 19:42] VITALS: O2SAT 100
== END 2018-01-07 02:15 | disposition home or self-care (01) ==
LOC: H.ER 20:38
DX: Z48.01 Encounter for change or removal of surgical wound dressing (principal); K56.7 Ileus, unspecified
CPT/HCPCS: 74177; 80053; 85025; 87070; 96374; 99283; J1885; J7030; Q9967